=== PATIENT | male | born 1955 | race Caucasian/White ===

== ENCOUNTER 2018-03-26 11:17 | Emergency (ER) | payer MEDICARE, MEDICAID ==
[~2018-03-26] VITALS: Ht 175.3 cm; Wt 75.0 kg
[2018-03-26 11:22] VITALS: BP 189/115
[2018-03-26] MEDS ORDERED: HYDR-3965 PO (12:49)
== END 2018-03-26 13:08 | disposition home or self-care (01) ==
LOC: ER 11:18
DX: G89.29 Other chronic pain (principal); M54.9 Dorsalgia, unspecified; Z76.0 Encounter for issue of repeat prescription; Z79.899 Other long term (current) drug therapy
CPT/HCPCS: 99283